=== PATIENT | male | born 1985 | race Caucasian/White ===

== ENCOUNTER 2017-08-12 18:47 | Emergency (ER) | payer OTHER, MEDICAID ==
[~2017-08-12] VITALS: Ht 172.7 cm; Wt 82.6 kg
[2017-08-12 18:47] VITALS: BP_SYST 133
[~2017-08-12 18:47] MED LIST: AMOX125T PO; CARB100T24 PO; LEVE250T2; LEVE500T13 PO; OXCA300T4 PO; QUET400T PO; TOPI100T11 PO; TOPI25TA8 PO; VALPORIC ACID
[2017-08-12] MEDS ORDERED: LEVO25TA7 PO (20:03)
[2017-08-12] MEDS ORDERED: DIVA500T4 PO (20:03)
[2017-08-12 20:49] LABS: UR TRICYCLIC ANTIDEPRESSANTS POSITIVE (NEG <=300)
[2017-08-12 20:50] LABS: BARBITURATE, URINE NEGATIVE (NEG <=200); BENZODIAZEPINE, URINE NEGATIVE (NEG <=150); CANNABINOID, URINE NEGATIVE (NEG <=50); COCAINE, URINE NEGATIVE (NEG <=150); METHAMPHETAMINES SCREEN,URINE NEGATIVE (NEG <=500); OPIATE, URINE NEGATIVE (NEG <=100); PHENCYCLIDINE SCREEN,URINE NEGATIVE (NEG <=25); URINE AMPHETAMINE NEGATIVE (NEG <=500); URINE METHADONE NEGATIVE (NEG <=200); URINE OXYCODONE SCREEN NEGATIVE (NEG <=100); URINE PROPOXYPHENE SCREEN NEGATIVE (NEG <=300)
[2017-08-12 20:52] LABS: BASOPHILS # (AUTO) 0.1 K/uL (0.0-0.2); BASOPHILS % (AUTO) 0.9 % (0.0-2.0); EOSINOPHILS # (AUTO) 0.4 K/uL (0.0-0.4); EOSINOPHILS % (AUTO) 4.8 % (0.0-4.0); HEMATOCRIT 42.5 % (36-54); HEMOGLOBIN 14.1 g/dL (14.0-18.0); LYMPHOCYTES # (AUTO) 2.4 K/uL (1.0-5.5); LYMPHOCYTES % (AUTO) 30.4 % (20.5-51.5); MEAN CORPUSCULAR HEMOGLOBIN 29 pg (27-31); MEAN CORPUSCULAR HGB CONC 33 % (32-36); MEAN CORPUSCULAR VOLUME 87 fL (79.0-98.0); MONOCYTES # (AUTO) 0.5 K/uL (0.0-1.0); MONOCYTES % (AUTO) 6.8 % (1.7-9.3); NEUTROPHILS # (AUTO) 4.4 K/uL (1.8-7.7); NEUTROPHILS % (AUTO) 57.1 % (40.0-70.0); PLATELET COUNT (AUTO) 201 K/uL (130-430); RED BLOOD CELL COUNT(AUTO) 4.87 MIL/uL (4.2-6.2); RED CELL DISTRIBUTION WIDTH 12.7 % (9.0-15.0); WHITE BLOOD COUNT (AUTO) 7.9 K/uL (4.8-10.8)
[2017-08-12 21:00] LABS: BILIRUBIN,URINE NEGATIVE (NEGATIVE); BLOOD, URINE NEGATIVE (NEGATIVE); CLARITY/URINE CLEAR (CLEAR); COLOR,URINE YELLOW (YELLOW); GLUCOSE,URINE NEGATIVE (NEGATIVE); KETONES,URINE NEGATIVE (NEGATIVE); LEUKOCYTE ESTERASE ,URINE NEGATIVE (NEGATIVE); NITRITE, URINE NEGATIVE (NEGATIVE); PROTEIN URINE TRACE (NEGATIVE); UROBILINOGEN,URINE 0.2 (0.2-1.0)
[2017-08-12 21:11] LABS: ANION GAP 14 (5-15); CALCIUM 9.7 mg/dL (8.4-11.0); CHLORIDE 108 mmol/L (98-107); CREATININE 1.06 mg/dL (0.55-1.30); GLUCOSE 105 mg/dL (70-99); POTASSIUM 3.8 mmol/L (3.5-5.1); SODIUM SERUM 141 mmol/L (136-145); UREA NITROGEN, BLOOD 12 mg/dL (8-21)
[2017-08-12 21:15] LABS: ALANINE AMINOTRANSFERASE 18 U/L (12-78); ALBUMIN 4.2 g/dL (3.4-4.8); ASPARTATE AMINOTRANSFERASE 15 U/L (10-37); TOTAL BILIRUBIN 0.2 mg/dL (0.0-1.0)
[2017-08-12 21:30] LABS: GFR AFRICAN AMERICAN 105 mL/min (>90)
[2017-08-12 21:33] LABS: BACTERIA,URINE FEW /HPF (None Seen); MUCUS,URINE 3+ /LPF (None Seen); RBC,URINE 0-3 /HPF (0-3)
[2017-08-12 21:41] LABS: ACETAMINOPHEN < 1 ug/mL (1-30)
[2017-08-12] MEDS ORDERED: IBUPROFEN 800 MG TABLET PO ONE (21:45)
[2017-08-13] MEDS ORDERED: TOPIRAMATE 25 MG TABLET(TOPAMAX) PO ONE (00:15)
[2017-08-13] MEDS ORDERED: levETIRAcetam 500 MG TABLET PO ONE (00:15)
[2017-08-13] MEDS ORDERED: DIVALPROEX SODIUM 500 MG TAB.SR.24H (DEPAKOTE ER) PO ONE (00:15)
[2017-08-13] MEDS ORDERED: QUEtiapine FUMARATE 100 MG TABLET PO ONE (00:15)
[2017-08-13] MEDS ORDERED: TOPIRAMATE 100 MG TABLET(Topamax) ONE (00:24)
[2017-08-13] MEDS ORDERED: DIVALPROEX SODIUM 250 MG TABLET(DEPAKOTE) PO ONE (00:24)
[2017-08-13] MEDS ORDERED: QUEtiapine FUMARATE 100 MG TABLET ONE (00:34)
[2017-08-13] MEDS ORDERED: IBUPROFEN 800 MG TABLET PO ONE (04:45)
[2017-08-13 13:22] VITALS: BP_SYST 126
== END 2017-08-13 13:22 ==
LOC: SED 18:47
DX: R45.850 Homicidal ideations (principal); Z88.8 Allergy status to other drugs, medicaments and biological substances; Z79.899 Other long term (current) drug therapy
CPT/HCPCS: 36415; 73630; 80053; 80307; 81000; 85025; 93005; 99285; G0480; G0481; G0482

== ENCOUNTER 2023-09-16 17:51 | Emergency (ER) | payer OTHER, MEDICAID ==
[~2023-09-16] VITALS: Ht 172.7 cm; Wt 91.6 kg
[~2023-09-16 17:51] MED LIST changes: -AMOX125T PO; -CARB100T24 PO; +DIVA-50 PO; +DIVA-74 PO; +DIVA500T4 PO; -LEVE250T2; -LEVE500T13 PO; +LEVE500T8; +LEVE500T9 PO; +LEVO25TA7 PO; +OXCA300T38 PO; +QUET400T5 PO; +SEROQUEL PO; +TOPAMAX PO; +TOPI100T39 PO; -TOPI25TA8 PO; +TRILEPTAL PO; -VALPORIC ACID
[2023-09-16 18:04] VITALS: BP_SYST 133; PULSE 69; RESP 16; TEMP 97.7; O2SAT 97
[2023-09-16] MEDS ORDERED: CEPH-548 PO ×2 (18:21→18:54)
[2023-09-16] MEDS ORDERED: SILVER SULFADIAZINE 1%, 25 GM TOPICAL CREAM (SSD) TP ONE (18:30)
[2023-09-16] MEDS ORDERED: DIPHTH,PERTUSS(ACELL),TET VAC 0.5 ML VIAL (Tdap) I.M. ONE (18:30)
[2023-09-16 18:52] VITALS: BP_SYST 133; PULSE 98; RESP 18; TEMP 97.3; O2SAT 98
== END 2023-09-16 18:51 | disposition home or self-care (01) ==
LOC: SED 17:51
DX: T25.221A Burn of second degree of right foot, initial encounter (principal); X10.2XXA Contact with fats and cooking oils, initial encounter; Z79.899 Other long term (current) drug therapy; Y93.89 Activity, other specified; Y92.89 Other specified places as the place of occurrence of the external cause; Y99.8 Other external cause status; Z88.8 Allergy status to other drugs, medicaments and biological substances
CPT/HCPCS: 90715; 99283